=== PATIENT | male | born 1980 | race Caucasian/White ===

== ENCOUNTER 2016-04-26 14:58 | Emergency (ER) | payer OTHER ==
[~2016-04-26] VITALS: Ht 177.8 cm; Wt 90.7 kg
[2016-04-26 15:19] VITALS: BP 149/88
--- NOTE | 2016-04-26 15:19 | NUR ---
PATIENT PRESENTS TO ED FOR EVALUATION OF NEEDLESTICK INJURY SUSTAINED WHILE WORKING IN ER . PT STATES HE WAS INJECTING A MEDICATION IN A PT AND INADVERTENTLY STUCK HIMSELF WITH THE NEEDLE . DENIES N/V/D; SKIN IS PINK/WARM/DRY; AAOX4 WITH EVEN AND STEADY GAIT; LUNGS CLEAR BL; HR EVEN AND REGULAR; PT DENIES ANY FEVER, CP, SOB, OR COUGH AT THIS TIME; PATIENT STATES PAIN OF 0/10 AT THIS TIME; VSS; PATIENT POSITIONED FOR COMFORT; HOB ELEVATED; BEDRAILS UP X2; BED DOWN. ER MD MADE AWARE OF PT STATUS.
[2016-04-26 16:07] VITALS: BP 149/88
--- NOTE | 2016-04-26 16:07 | NUR ---
Patient discharged with v/s stable. Written and verbal after care instructions given and explained. Patient verbalized understanding. Ambulatory with steady gait. All questions addressed prior to discharge. Advised to follow up with PMD.
== END 2016-04-26 16:07 | disposition home or self-care (01) ==
LOC: MED 14:58
DX: S61.231A Puncture wound without foreign body of left index finger without damage to nail, initial encounter (principal); R03.0 Elevated blood-pressure reading, without diagnosis of hypertension; W46.0XXA Contact with hypodermic needle, initial encounter; Y93.89 Activity, other specified; Y92.89 Other specified places as the place of occurrence of the external cause; Y99.8 Other external cause status